=== PATIENT | female | born 1995 | race American Indian/Alaskan Native ===

== ENCOUNTER 2019-08-30 08:47 | Emergency (ER) | payer MEDICAID ==
--- NOTE | 2019-08-30 12:16 | Emergency Department Report ---
ED Female HPI - General Chief complaint: Abdominal Pain Stated complaint: STOMACH PAIN/HEADACHE Time Seen by Provider: 08/30/19 11:24 Source: patient Mode of arrival: Ambulatory Limitations: No Limitations - History of Present Illness Initial comments: This is a 24-year-old -[place] female who presents to the emergency room with pelvic cramps back pain for 2 days. Last distress. 08/04/2019, A0. Patient reports similar symptoms 2 weeks ago was seen in a different emergency room and informed no STDs. She reports urinary frequency, urgency, dysuria, back pain, and pelvic cramps. She denies vaginal discharge and risk of STD. MD Complaint: dysuria, pelvic pain Onset/Timin -: days(s) Location: suprapubic Radiation: non-radiating Severity: mild Severity scale (0 -10): 3 Quality: cramping Consistency: constant Improves with: none Worsens with: urination Are you Now?: No Last Menstrual Period: 08/04/19 EDC: 05/10/20 Associated Symptoms: vaginal discharge, abdominal pain, dysuria. denies: vaginal bleeding, nausea/vomiting, fever/chills, headaches, loss of appetite, hematuria, rash, seizure, shortness of breath, syncope, weakness - Related Data Sexually active: Yes : 1 Para: 1 A: 0 Previous Rx's Medication Instructions Recorded Last Taken Type Nitrofurantoin Jewell/M-Cryst 100 mg PO Q12HR #10 capsule 08/30/19 Unknown Rx [Macrobid CAP] ED Review of Systems ROS: Stated complaint: STOMACH PAIN/HEADACHE Other details as noted in HPI Constitutional: denies: chills, fever Respiratory: denies: cough, shortness of breath, wheezing Cardiovascular: denies: chest pain, palpitations Gastrointestinal: abdominal pain. denies: nausea, diarrhea Genitourinary: dysuria, frequency. denies: urgency, hematuria, discharge, abnormal menses, dyspareunia Musculoskeletal: back pain. denies: joint swelling, arthralgia Skin: denies: rash, lesions Neurological: denies: headache, weakness, paresthesias Psychiatric: denies: anxiety, depression ED Past Medical Hx - Medications Home Medications: Home Medications Medication Instructions Recorded Confirmed Last Taken Type Nitrofurantoin Jewell/M-Cryst 100 mg PO Q12HR #10 capsule 08/30/19 Unknown Rx [Macrobid CAP] ED Physical Exam - General Limitations: No Limitations General appearance: alert, in no apparent distress, obese - Respiratory Respiratory exam: Present: normal lung sounds bilaterally. Absent: respiratory distress - Cardiovascular Cardiovascular Exam: Present: regular rate, normal rhythm. Absent: systolic murmur, diastolic murmur, rubs, gallop - GI/Abdominal GI/Abdominal exam: Present: soft, tenderness (suprapubic tenderness), normal bowel sounds. Absent: distended, guarding, rebound, rigid, organomegaly, mass - Back Exam Back exam: Present: full ROM, CVA tenderness (L). Absent: CVA tenderness (R), rash noted - Neurological Exam Neurological exam: Present: alert, oriented X3, normal gait - Psychiatric Psychiatric exam: Present: normal affect, normal mood - Skin Skin exam: Present: warm, dry, intact, normal color. Absent: rash ED Course Vital Signs 08/30/19 08:58 Temperature 98.6 F Pulse Rate 91 H Respiratory 18 Rate Blood Pressure 129/81 O2 Sat by Pulse 95 Oximetry ED Medical Decision Making - Lab Data Lab Results 08/30/19 Range/Units 12:28 Urine Color Straw (Yellow) Urine Turbidity Slightly-cloudy (Clear) Urine pH 6.0 (5.0-7.0) Ur Specific [place] 1.010 (1.003-1.030) Urine Protein <15 mg/dl (Negative) mg/dL Urine Glucose (UA) Neg (Negative) mg/dL Urine Ketones Neg (Negative) mg/dL Urine Blood Neg (Negative) Urine Nitrite Neg (Negative) Urine Bilirubin Neg (Negative) Urine Urobilinogen < 2.0 (<2.0) mg/dL Ur Leukocyte Esterase Lg (Negative) Urine WBC (Auto) 2.0 (0.0-6.0) /HPF Urine RBC (Auto) 8.0 (0.0-6.0) /HPF U Epithel Cells (Auto) 8.0 (0-13.0) /HPF Urine Bacteria (Auto) 1+ (Negative) /HPF Urine Mucus Few /HPF Urine HCG, Qual Negative (Negative) - Medical Decision Making Patient seen by this provider. Suprapubic tenderness and left flank pain on exam. Urinalysis and urine test obtained and unremarkable. Patient denies vaginal discharge or risk for sexually transmitted infections. UTI symptoms Start antibiotics. Referral to gynecology for continued care. Patient discharged home stable. Critical care attestation.: If time is entered above; I have spent that time in minutes in the direct care of this critically ill patient, excluding procedure time. ED Disposition Clinical Impression: UTI symptoms, Dysuria Disposition: TO HOME OR SELFCARE Is pt being admited?: No Condition: Stable Instructions: Abdominal Pain (ED), Dysuria (ED) Additional Instructions: Increase fluid intake to 1-2 L per day. 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 Prescriptions: Nitrofurantoin Jewell/M-Cryst [Macrobid CAP] 100 mg PO Q12HR #10 capsule Referrals: [facility] [Provider Group] - 3-5 Days [facility] [Provider Group] - 3-5 Days [facility] [Provider Group] - 3-5 Days Forms: Work/School Release Form(ED) Time of Disposition: 14:29
[2019-08-30 13:53] LABS: Bacteria,Urine 1+ /HPF (Negative); Bilirubin,Urine NEG (Negative); Blood,Urine NEG (Negative); Color,Urine Straw (Yellow); Mucus,Urine FEW /HPF; Protein,Urine <15 mg/dL mg/dL (Negative); Urobilinogen,Urine < 2.0 mg/dL (<2.0)
[2019-08-30 13:54] LABS: HCG Qualitative,Urine Negative (Negative)
[2019-08-30 14:45] VITALS: BP 124/78
== END 2019-08-30 14:44 | disposition home or self-care (01) ==
LOC: ED 08:47
DX: N39.0 Urinary tract infection, site not specified (principal)
CPT/HCPCS: 81001; 81025; 99283